=== PATIENT | male | born 1955 | race Native Hawaiian/Other Pacific Islander ===

== ENCOUNTER 2017-02-06 11:22 | Inpatient (IN) | payer OTHER ==
[~2017-02-06] VITALS: Ht 180.3 cm; Wt 113.9 kg
[2017-02-06] VITALS (11 sets, daily range): BP systolic 163–230; BP diastolic 90–139; TEMP 98.5–99.2; Ht 180.3 cm; Wt 113.9 kg
[2017-02-06] MEDS ORDERED: ALLO300T23 PO (11:39)
[2017-02-06] MEDS ORDERED: DOCU100C10 PO (11:40)
[2017-02-06] MEDS ORDERED: COZAAR100 MG PO (11:41)
[2017-02-06] MEDS ORDERED: MELOXICAM7.5 MG OR (11:41)
[2017-02-06] MEDS ORDERED: OMEGA 3 500 5001 CAP PO (11:42)
[2017-02-06] MEDS ORDERED: CARV12.5 PO (11:42)
[2017-02-06] MEDS ORDERED: DEPO-TESTOS200 MG/M1 IM (11:43)
[2017-02-06 12:19] LABS: PLATELET COUNT 118 K/uL (142-355)
[2017-02-06] MEDS ORDERED: HYDR5TAB9 PO (12:24)
[2017-02-06 12:25] LABS: POTASSIUM 4.5 mmol/L (3.6-5.2)
--- NOTE | 2017-02-06 17:39 | NUR ---
1445 C/O ABD PAIN AND ROLDAN. HAD HERNIA REPAIR 02/04/17. STERI STRIPS INTACT X3 AREAS ON ABDS. URINE OUTPUT DECREASED X2 DAYS. CATH IN ER WITH 1100CC URINE OUTPUT.
[2017-02-07] VITALS: BP 133/86; TEMP 97.3
--- NOTE | 2017-02-07 01:42 | NUR ---
02/07/17 0100: NOTIFIED ER DOCTOR OF POSITIVE BLOOD CULTURES. PT ON MD ALEE STATED THAT'S ALRIGHT.
[2017-02-07 04:00] VITALS: BP 144/81; BP 169/95; TEMP 98; TEMP 98.2
[2017-02-07 05:23] LABS: PLATELET COUNT 106 K/uL (142-355)
[2017-02-07 05:38] LABS: POTASSIUM 3.8 mmol/L (3.6-5.2)
--- NOTE | 2017-02-07 07:30 | NUR ---
PT HAS STERI STRIPS TO L ABD AND UMB. CLEAN AND DRY. NO S/S OF INFECTION.
[2017-02-07 08:00] VITALS: BP 180/98; TEMP 98.1
[2017-02-07 12:00] VITALS: BP 135/89; TEMP 97.6
[2017-02-07 16:00] VITALS: BP 153/83; TEMP 97.9
[2017-02-07 20:00] VITALS: BP 131/94; TEMP 98.3
[2017-02-08] VITALS: BP 142/86; TEMP 97.6
[2017-02-08 04:00] VITALS: BP 158/91; TEMP 98.3
[2017-02-08 08:00] VITALS: BP 179/98; TEMP 99.2
[2017-02-08 08:04] LABS: PLATELET COUNT 152 K/uL (142-355)
[2017-02-08 08:10] LABS: POTASSIUM 4.2 mmol/L (3.6-5.2)
[2017-02-08 12:23] VITALS: BP 136/76
[2017-02-08 16:00] VITALS: BP 164/93; TEMP 98.7
[2017-02-08 20:00] VITALS: BP 148/94; TEMP 97.6
[2017-02-09] VITALS (7 sets, daily range): BP systolic 163–206; BP diastolic 91–113; TEMP 97.4–98.6
--- NOTE | 2017-02-09 07:30 | NUR ---
PT PULLED IV OUT AT THIS TIME. CANNULA INTACT. SITE CARE PROVIDED. IV RESTARTED TO L FA WITH 22G ANGIOCATH. PT TOLERATED WELL. NAD NOTED. IV FLUIDS RESTARTED.
[2017-02-09 08:34] LABS: PLATELET COUNT 163 K/uL (142-355)
[2017-02-09 08:46] LABS: POTASSIUM 4.5 mmol/L (3.6-5.2)
--- NOTE | 2017-02-09 11:45 | NUR ---
PT HAS THE URGE TO URINATE. CHRISTOPHER UNCLAMPED. PT STATED HE HAD RELIEF. CHRISTOPHER CLAMPED. INSTRUCTED PT. PT STATED HE UNDERSTOOD.
--- NOTE | 2017-02-09 12:50 | NUR ---
PT HAS STRONG URGE TO URINATE. CHRISTOPHER UNCLAMPED. BLADDER DRAINED. CHRISTOPHER D/C'D. PT HEATHER WELL.
--- NOTE | 2017-02-09 14:00 | NUR ---
PT VOIDED WITHOUT DIFFICULTY.
--- NOTE | 2017-02-09 16:25 | NUR ---
LABETOLOL 4ML IV GIVEN SLOWLY. WILL CONTINUE TO MONITOR.
--- NOTE | 2017-02-09 16:30 | NUR ---
BP 174/110. ILIANA PHELAN NP NOTIFIED. RECEIVED NEW ORDER.
--- NOTE | 2017-02-09 17:22 | NUR ---
MANUAL BP 150/110.
[2017-02-10] VITALS: BP 181/113; TEMP 98.3
[2017-02-10 04:00] VITALS: BP 189/102; TEMP 97.7
[2017-02-10 05:52] LABS: POTASSIUM 5.2 mmol/L (3.6-5.2)
[2017-02-10 06:23] LABS: PLATELET COUNT 121 K/uL (142-355)
[2017-02-10 06:45] VITALS: BP 222/116
[2017-02-10 08:00] VITALS: BP 186/102; TEMP 98.6
--- NOTE | 2017-02-10 08:09 | NUR ---
02/10/2017 @ 0640 PATIENTS BP RECHECKED DUE TO BEING ELEVATED AND READING IS NOW 222/118 WITH MANUAL CUFF. PT. GIVEN LABETALOL 5MG/ML, DOSE IS 4 MLS IV AT 0650. WILL CONTINUE TO MONITOR.
[2017-02-10] MEDS ORDERED: 904272561 PO (10:15)
== END 2017-02-10 10:35 | disposition home or self-care (01) | DRG 690 ==
LOC: ED 11:22 → MED/SURG 13:12
PROVIDERS: Family Medicine; ADMIT Specialist
DX: N10 Acute pyelonephritis (principal); N13.8 Other obstructive and reflux uropathy; I10 Essential (primary) hypertension; N39.0 Urinary tract infection, site not specified; B96.20 Unspecified Escherichia coli [E. coli] as the cause of diseases classified elsewhere
CPT/HCPCS: 36415; 51702; 80048; 80053; 81000; 83036; 83605; 83735; 85027; 87040; 87077; 87086; 87088; 87186; 87205; 96365; 96375; 99284; J0360; J1885; J1956; J2185; J3480; J3490

== ENCOUNTER 2017-02-23 06:33 | Emergency (ER) | payer OTHER ==
[~2017-02-23] VITALS: Ht 180.3 cm; Wt 108.9 kg
[~2017-02-23 06:33] MED LIST: 904272561 PO; ALLO300T23 PO; CARV12.5 PO; COZAAR100 MG PO; DEPO-TESTOS200 MG/M1 IM; DOCU100C10 PO; HYDR5TAB9 PO; MELOXICAM7.5 MG OR; OMEGA 3 500 5001 CAP PO
[2017-02-23 07:51] LABS: PLATELET COUNT 130 K/uL (142-355)
[2017-02-23 08:36] LABS: POTASSIUM 7.2 mmol/L (3.6-5.2)
[2017-02-23 09:24] VITALS: BP 131/75; TEMP 99.4
== END 2017-02-23 10:25 | disposition short-term general hospital (02) ==
LOC: ED 06:33
DX: J11.1 Influenza due to unidentified influenza virus with other respiratory manifestations (principal); N17.9 Acute kidney failure, unspecified; E87.5 Hyperkalemia; E87.1 Hypo-osmolality and hyponatremia
CPT/HCPCS: 36415; 80053; 81000; 85027; 87081; 87804; 87880; 94640; 94664; 94760; 96361; 96374; 99284; J1885

== ENCOUNTER 2017-02-23 10:30 | Outpatient (CLI) | payer OTHER | END 2017-02-23 11:30 | disposition short-term general hospital (02) | LOC: AMB 10:30 | DX: J11.1 Influenza due to unidentified influenza virus with other respiratory manifestations (principal); N17.9 Acute kidney failure, unspecified; E87.5 Hyperkalemia; E87.1 Hypo-osmolality and hyponatremia | CPT/HCPCS: A0425; A0427 ==